=== PATIENT | male | born 1980 | race Caucasian/White ===

== ENCOUNTER 2019-04-29 07:59 | Emergency (ER) | payer OTHER ==
[~2019-04-29] VITALS: Ht 180.3 cm; Wt 83.9 kg
[~2019-04-29 07:59] MED LIST: ACETAMINOPHEN325 M1 PO; AMITRIPTYLINE H50 M2 PO; ATIVAN1 MG PO; BENTYL 20 MG TA20 M1 PO; COMPAZINE25 M1 RC; HYDROXYZINE HCL25 M1 PO; ONDANSETRON HCL4 M2 PO; PROTONIX40 M2 PO; ULTRACET TABLE1 EACH PO; ZANTAC 150MG T150 M1; ZOFRAN 4 MG ORAL4 MG PO; ZOFRAN ODT4 MG SUBLING
[2019-04-29 08:47] LABS: HEMATOCRIT 42.6 % (42.0-52.0); HEMOGLOBIN 14.9 gm/dL (14.0-18.0); MCH 32.7 pg (26.0-34.0); MCHC 34.9 g/dL (28.0-37.0); MCV 93.7 fL (80.0-100.0); MPV 8.5 fl. (7.2-11.1); NUCLEATED RBCS 0 /100WBC; PLATELET COUNT* 279 thou/uL (150-400); RBC 4.55 mil/uL (4.50-6.00); RDW-CV 12.7 % (10.5-14.5); WBC 8.1 thou/uL (4.0-11.0)
[2019-04-29 08:55] LABS: ANION GAP 11 mmol/L (7-16); BUN 17 mg/dL (7-18); CALCIUM 9.4 mg/dL (8.5-10.1); CHLORIDE 102 mmol/L (98-107); CO2 26 mmol/L (21-32); CREATININE 1.2 mg/dL (0.6-1.3); GLUCOSE 109 mg/dL (70-99); POTASSIUM 3.8 mmol/L (3.5-5.1); SODIUM 139 mmol/L (136-145)
[2019-04-29 09:07] LABS: ALBUMIN 4.3 g/dL (3.4-5.0); ALKALINE PHOSPHATASE 38 U/L (46-116); LIPASE 90 U/L (73-393); SGOT 18 U/L (15-37); SGPT 27 U/L (30-65); TOTAL BILIRUBIN 0.6 mg/dL (<0.1-1.0); TOTAL PROTEIN 7.7 g/dL (6.4-8.2); TROPONIN-I LEVEL <0.06 ng/mL (<0.06)
[2019-04-29 09:17] LABS: ABSOLUTE LYMPHOCYTES 1.1 thou/uL (0.8-5.3); ABSOLUTE MONOCYTES 0.6 thou/uL (0.0-1.2); ABSOLUTE NEUTROPHILS 6.3 thou/uL (1.6-8.1); ANISOCYTOSIS 1+; PLATELET ESTIMATE ADEQUATE; POIKILOCYTOSIS 1+
[2019-04-29] MEDS ORDERED: BENTYL 20 MG TA20 M1 PO (09:17)
[2019-04-29] MEDS ORDERED: ZOFRAN ODT4 MG DISSOLVE (09:17)
[2019-04-29 09:36] VITALS: BP 151/88
--- NOTE | 2019-04-29 18:17 | EKG ---
[place] [address] ELECTROCARDIOGRAM REPORT Name: CLIFF TEAGUE Room: [facility]#: [id number] Admission: 04/29/19 Attend Phys: Discharge: 04/29/19 Date of : 78 Report #: [id number] THIS REPORT FOR: //name// [facility] ED Test Date: 2019-04-29 Test Time: 08:37:24 Pat Name: CLIFF TEAGUE Department: Room: Gender: M [employer]: : 1980 Requested By: Philip Wolfe Order Number: [id number] MD: Mike Rodriguez Measurements Intervals [place] Rate: 77 P: -90 SC: 171 QRS: 61 QRSD: 95 T: 29 QT: 379 QTc: 429 Interpretive Statements Ectopic atrial rhythm RSR' in V1 or V2, probably normal variant Probable left ventricular hypertrophy ST elev, probable normal early repol pattern No previous ECG available for comparison Electronically Signed On 04-29-2019 18:17:48 CDT by Mike Rodriguez [email or web address] <ELECTRONICALLY SIGNED> By: Mike Rodriguez MD, [facility] 04/29/19 181 6 6 Mike Rodriguez MD, [facility] /EPI
== END 2019-04-29 09:36 | disposition home or self-care (01) ==
LOC: M.ERS 07:59
PROVIDERS: Emergency Medicine Emergency Medical Services
DX: R11.2 Nausea with vomiting, unspecified (principal); R10.33 Periumbilical pain

== ENCOUNTER 2019-04-30 12:39 | Emergency (ER) | payer OTHER ==
[~2019-04-30] VITALS: Ht 182.9 cm; Wt 83.9 kg
[~2019-04-30 12:39] MED LIST changes: +ZOFRAN ODT4 MG DISSOLVE
[2019-04-30 12:53] LABS: URINE BLOOD NEGATIVE (Negative); URINE CLARITY CLEAR; URINE COLOR YELLOW; URINE GLUCOSE-RANDOM NEGATIVE (Negative); URINE KETONES 1+ (Negative); URINE LEUKOCYTES NEGATIVE (Negative); URINE NITRITE NEGATIVE (Negative); URINE PROTEIN 1+ (Negative); URINE SPECIFIC GRAVITY 1.025 (1.005-1.030)
[2019-04-30 12:55] LABS: ICTOTEST (BILI CONFIRMATORY) Negative (Negative); URINE BILIRUBIN 1+ (Negative)
[2019-04-30 13:00] LABS: AMP/METHAMP Negative (Negative); BARBITURATES Negative (Negative); BENZODIAZEPINES Negative (Negative); COCAINE Negative (Negative); METHADONE Negative (Negative); OPIATES POSITIVE (Negative); PCP Negative (Negative); THC Negative (Negative)
[2019-04-30 13:03] LABS: ABSOLUTE BASOPHILS 0.1 thou/uL (0.0-0.2); ABSOLUTE LYMPHOCYTES 1.6 thou/uL (0.8-5.3); ABSOLUTE MONOCYTES 0.7 thou/uL (0.0-1.2); ABSOLUTE NEUTROPHILS 9.2 thou/uL (1.6-8.1); BASOPHILS 0.9 %; EOSINOPHILS 0.3 %; HEMOGLOBIN 16.1 gm/dL (14.0-18.0); LYMPHOCYTES 13.6 %; MCH 32.3 pg (26.0-34.0); MCHC 34.4 g/dL (28.0-37.0); MONOCYTES 5.7 %; MPV 8.3 fl. (7.2-11.1); NUCLEATED RBCS 0 /100WBC; PLATELET COUNT* 290 thou/uL (150-400); POLYS 79.5 %; RBC 4.99 mil/uL (4.50-6.00); WBC 11.5 thou/uL (4.0-11.0)
[2019-04-30 13:10] LABS: CALCIUM 9.6 mg/dL (8.5-10.1); CREATININE 1.4 mg/dL (0.6-1.3); POTASSIUM 3.8 mmol/L (3.5-5.1)
[2019-04-30 13:15] LABS: ALBUMIN 4.7 g/dL (3.4-5.0); TOTAL BILIRUBIN 0.8 mg/dL (<0.1-1.0); TOTAL PROTEIN 8.3 g/dL (6.4-8.2)
[2019-04-30 15:01] VITALS: BP 165/91
== END 2019-04-30 15:03 | disposition home or self-care (01) ==
LOC: M.ERS 12:39
PROVIDERS: Nurse Practitioner Family
DX: R11.2 Nausea with vomiting, unspecified (principal); R10.84 Generalized abdominal pain

== ENCOUNTER 2020-06-26 15:52 | Emergency (ER) | payer OTHER ==
[~2020-06-26] VITALS: Ht 180.3 cm; Wt 83.9 kg
[2020-06-26 17:20] VITALS: BP 147/81
== END 2020-06-26 17:22 | disposition home or self-care (01) ==
LOC: M.ERS 15:52
DX: R11.15 Cyclical vomiting syndrome unrelated to migraine (principal); Z20.828 Contact with and (suspected) exposure to other viral communicable diseases

== ENCOUNTER 2021-05-23 16:44 | Emergency (ER) | payer OTHER ==
[~2021-05-23] VITALS: Ht 182.9 cm; Wt 79.4 kg
[2021-05-23 17:27] LABS: ABSOLUTE EOSINOPHILS 0.1 thou/uL (0.0-0.7); ABSOLUTE LYMPHOCYTES 1.7 thou/uL (0.8-5.3); ABSOLUTE MONOCYTES 0.7 thou/uL (0.0-1.2); ABSOLUTE NEUTROPHILS 2.9 thou/uL (1.6-8.1); BASOPHILS 0.9 %; EOSINOPHILS 1.1 %; HEMATOCRIT 44.3 % (42.0-52.0); HEMOGLOBIN 15.5 gm/dL (14.0-18.0); LYMPHOCYTES 31.3 %; MCH 33.5 pg (26.0-34.0); MCV 95.9 fL (80.0-100.0); MONOCYTES 12.6 %; NUCLEATED RBCS 0 /100WBC; PLATELET COUNT* 238 thou/uL (150-400); POLYS 54.1 %; RBC 4.62 mil/uL (4.50-6.00); RDW-CV 13.5 % (10.5-14.5); WBC 5.4 thou/uL (4.0-11.0)
[2021-05-23 17:36] LABS: CREATININE 1.4 mg/dL (0.6-1.3)
[2021-05-23 17:39] LABS: URINE BILIRUBIN 1+ (Negative); URINE BLOOD NEGATIVE (Negative); URINE CLARITY CLEAR; URINE COLOR DARK YELLOW; URINE GLUCOSE-RANDOM NEGATIVE (Negative); URINE KETONES NEGATIVE (Negative); URINE LEUKOCYTES NEGATIVE (Negative); URINE NITRITE NEGATIVE (Negative); URINE PROTEIN TRACE (Negative); URINE SPECIFIC GRAVITY >= 1.030 (1.005-1.030); URINE UROBILINOGEN 0.2 E.U./dl (0.2-1.0)
[2021-05-23 17:41] LABS: ICTOTEST (BILI CONFIRMATORY) Negative (Negative)
[2021-05-23 17:45] LABS: POTASSIUM 2.9 mmol/L (3.5-5.1)
[2021-05-23] MEDS ORDERED: ZOFRAN ODT4 MG PO (18:31)
[2021-05-23] MEDS ORDERED: KLOR-CON M2020 MEQ PO (18:31)
[2021-05-23 18:40] VITALS: BP 122/70
== END 2021-05-23 18:41 | disposition home or self-care (01) ==
LOC: M.ERS 16:44
PROVIDERS: Family Medicine; Physician Assistant
DX: R11.2 Nausea with vomiting, unspecified (principal); Z98.890 Other specified postprocedural states

== ENCOUNTER 2021-05-25 04:02 | Emergency (ER) | payer OTHER ==
[~2021-05-25] VITALS: Ht 182.9 cm; Wt 79.4 kg
[~2021-05-25 04:02] MED LIST changes: +KLOR-CON M2020 MEQ PO; +ZOFRAN ODT4 MG PO
[2021-05-25 04:56] LABS: URINE BILIRUBIN NEGATIVE (Negative); URINE BLOOD NEGATIVE (Negative); URINE CLARITY CLEAR; URINE COLOR YELLOW; URINE GLUCOSE-RANDOM NEGATIVE (Negative); URINE KETONES 1+ (Negative); URINE LEUKOCYTES-REFLEX NEGATIVE (Negative); URINE NITRITE-REFLEX NEGATIVE (Negative); URINE PROTEIN TRACE (Negative); URINE SPECIFIC GRAVITY 1.015 (1.005-1.030); URINE UROBILINOGEN 0.2 E.U./dl (0.2-1.0)
[2021-05-25 05:04] LABS: AMP/METHAMP Negative (Negative); BARBITURATES Negative (Negative); BENZODIAZEPINES Negative (Negative); COCAINE Negative (Negative); METHADONE Negative (Negative); OPIATES Negative (Negative); PCP Negative (Negative); THC Negative (Negative)
[2021-05-25 05:07] LABS: HEMATOCRIT 43.3 % (42.0-52.0); HEMOGLOBIN 15.2 gm/dL (14.0-18.0); MCH 33.5 pg (26.0-34.0); MCV 95.8 fL (80.0-100.0); MPV 8.1 fl. (7.2-11.1); RBC 4.52 mil/uL (4.50-6.00); RDW-CV 13.3 % (10.5-14.5); WBC 7.1 thou/uL (4.0-11.0)
[2021-05-25 05:35] LABS: ALBUMIN 4.1 g/dL (3.4-5.0); CREATININE 1.1 mg/dL (0.6-1.3); POTASSIUM 3.9 mmol/L (3.5-5.1); TOTAL BILIRUBIN 0.7 mg/dL (<0.1-1.0); TOTAL PROTEIN 7.5 g/dL (6.4-8.2)
[2021-05-25] MEDS ORDERED: DICYCLOMINE HCL20 MG PO (06:25)
[2021-05-25] MEDS ORDERED: CARAFATE1 GM PO (06:25)
[2021-05-25] MEDS ORDERED: PHENERGAN 25 MG25 M1 PO (06:25)
[2021-05-25 06:34] VITALS: BP 164/100
== END 2021-05-25 06:34 | disposition home or self-care (01) ==
LOC: M.ERS 04:02
PROVIDERS: Personal Emergency Response Attendant
DX: R10.13 Epigastric pain (principal); R10.12 Left upper quadrant pain; R11.2 Nausea with vomiting, unspecified; Z79.899 Other long term (current) drug therapy